=== PATIENT | female | born 1995 | race Caucasian/White ===

== ENCOUNTER 2016-06-01 12:12 | Emergency (ER) | payer BC ==
[~2016-06-01] VITALS: Ht 149.9 cm; Wt 56.8 kg
[2016-06-01 13:25] VITALS: BP 123/72; PULSE 91; TEMP 99
== END 2016-06-01 13:28 | disposition home or self-care (01) ==
LOC: COL.ER 12:12
DX: J06.9 Acute upper respiratory infection, unspecified (principal); R59.0 Localized enlarged lymph nodes